=== PATIENT | female | born 1945 | race Caucasian/White ===

== ENCOUNTER → 2023-04-02 | Outpatient (CLI) | payer MEDICARE ==
[~2023-04-02] VITALS: Ht 165.1 cm; Wt 100.0 kg
[~2023-04-02] MED LIST: aminophylline 250mg/10ml inj. IV PRN; atropine 0.1mg/ml 10ml syringe IV PRN; nitroGLYCERIN 0.4mg SUBLingual tab SL PRN; normal saline 500ml IV soln 500 ML IV ONE; regadenoson 0.4mg/5ml syringe IV ONE
[2023-04-02 11:00] VITALS: BP 124/66
[2023-04-02 11:11] VITALS: BP 136/57
[2023-04-02 11:12] VITALS: BP 128/56
[2023-04-02 11:13] VITALS: BP 135/53
[2023-04-02 11:14] VITALS: BP 107/49
[2023-04-02 11:15] VITALS: BP 122/51
== END | disposition home or self-care (01) ==
LOC: RAD 09:09
PROVIDERS: ATTEND Internal Medicine Cardiovascular Disease
DX: R07.89 Other chest pain (principal)
CPT/HCPCS: 78452; 93017; A9500; J2785; J7040